=== PATIENT | female | born 1950 | race Caucasian/White ===

== ENCOUNTER → 2018-01-02 | Outpatient (CLI) | payer MEDICARE ==
[~2018-01-02] MED LIST: BENA20TA72; BENICAR; CALCIUM; DILT120C; DILTIAZEM; FISH OIL; HCTZ12.5T; HYDR-757 PO; LISI1TAB8 PO; VITAMIN D
== END ==
LOC: CARD 10:04
PROVIDERS: ATTEND Internal Medicine Cardiovascular Disease
DX: I65.23 Occlusion and stenosis of bilateral carotid arteries (principal); R07.9 Chest pain, unspecified; R06.00 Dyspnea, unspecified; I10 Essential (primary) hypertension; E78.2 Mixed hyperlipidemia
CPT/HCPCS: 93306

== ENCOUNTER → 2018-01-07 | Outpatient (CLI) | payer MEDICARE ==
--- NOTE | 2018-01-07 12:27 | Diagnostic Imaging Report ---
INDICATION: Routine screening. COMPARISON: 11/17/2014 and 01/09/2012. TECHNIQUE: 2D and 3D bilateral screening mammography was performed with CAD. FINDINGS: Both breasts are heterogeneously dense, limiting the sensitivity of mammography. The parenchymal pattern is stable. No mass or malignant-appearing microcalcifications are seen. The axillae are unremarkable. IMPRESSION: No mammographic features suspicious for malignancy are identified. ACR BI-RADS Category 1: Negative. Result letter will be mailed to the patient. Note: At least 10% of breast cancer is not imaged by mammography. Dictated by: Dictated on workstation # [id number]
== END ==
LOC: RAD 08:36
PROVIDERS: ATTEND Internal Medicine
DX: Z12.31 Encounter for screening mammogram for malignant neoplasm of breast (principal)
CPT/HCPCS: 77067

== ENCOUNTER 2018-09-22 08:52 | Observation (INO) | payer MEDICARE ==
[2018-09-22] VITALS (14 sets, daily range): BP systolic 134–183; BP diastolic 72–91
[~2018-09-22] VITALS: Ht 162.6 cm; Wt 76.8 kg
[~2018-09-22 08:52] MED LIST changes: +HYDR-4226 PO; -HYDR-757 PO
[2018-09-22 09:40] LABS: BASOPHILS # (AUTO) 0.1 10^3/uL (0.0-0.1); BASOPHILS % (AUTO) 1 % (0-10); EOSINOPHILS # (AUTO) 0.2 10^3/uL (0.0-0.3); EOSINOPHILS % (AUTO) 3 % (0-10); HEMATOCRIT 38 % (35-52); LYMPHOCYTES # (AUTO) 1.6 X 10^3 (1.0-4.0); LYMPHOCYTES % (AUTO) 31 % (12-44); MEAN CORPUSCULAR HEMOGLOBIN 32 PG (25-34); MEAN CORPUSCULAR HGB CONC 34 G/DL (32-36); MEAN CORPUSCULAR VOLUME 93 FL (80-99); MEAN PLATELET VOLUME 10.6 FL (7.4-10.4); MONOCYTES # (AUTO) 0.5 X 10^3 (0.0-1.0); MONOCYTES % (AUTO) 9 % (0-12); NEUTROPHILS # (AUTO) 2.9 X 10^3 (1.8-7.8); NEUTROPHILS % (AUTO) 56 % (42-75); PLATELET COUNT 246 10^3/uL (130-400); WHITE BLOOD COUNT 5.1 10^3/uL (4.3-11.0)
[2018-09-22] MEDS: NS IV 1000 ML 1,000 ML IV SCH ×3 (09:40→15:19)
--- NOTE | 2018-09-22 09:42 | ED Chest Pain ---
General Chief Complaint: Chest Pain Stated Complaint: SHOULDER PAIN, PRESSURE IN CHEST Nursing Triage Note: PT AMB TO RM 7 WITH COMPLAINT OF SHOULDER BLADE PRESSURE THAT RADIATES TO CHEST , BILATERAL SHOULDERS AND BILATERAL ARMS. Nursing Sepsis Screen: No Definite Risk Source: patient, family Exam Limitations: no limitations History of Present Illness Date Seen by Provider: Sep 22, 2018 Time Seen by Provider: 09:29 Initial Comments This 68-year-old white female presents with two-week history of intermittent severe right shoulder pain now with also episodes of chest pressure. Patient relates that the right shoulder pain lasts for an hour and is rated as 8/10. The patient's chest pressure episodes last 30 minutes and is rated as 5/10. Patient denies any other symptoms with these episodes. The patient has a history of hypertension and extrasystoles for which she sees Dr. Gannon. She uses lisinopril with hydrochlorothiazide for her blood pressure and Cardizem 120 mg. Allergies and Home Medications Allergies Coded Allergies: No Known Allergies (Unverified Allergy, Mild, 05/30/09) Home Medications Hydrocodone/Acetaminophen 1 Each Tablet, 1 EACH PO Q6H PRN for PAIN Prescribed by: VANESSA PAZ on 10/27/151942 Lisinopril/Hydrochlorothiazide 1 Each Tablet, 1 EACH PO DAILY, (Reported) Patient Home Medication List Home Medication List Reviewed: Yes Review of Systems Review of Systems Constitutional: No chills EENTM: No Double Vision Respiratory: Denies Cough Cardiovascular: See HPI, Chest Pain Gastrointestinal: Denies Abdominal Pain, Denies Diarrhea, Denies Nausea, Denies Vomiting Genitourinary: Denies Burning, Denies Frequency Musculoskeletal: No back pain Skin: No rash Psychiatric/Neurological: Denies Anxiety, Denies Depressed Endocrine: Denies No Symptoms Reported Hematologic/Lymphatic: Denies No Symptoms Reported Past Cvwmoll-Hgrvgh-Ebouuw Hx Past Med/Social Hx: Reviewed Nursing Past Med/Soc Hx Patient Social History Alcohol Use: Denies Use Recreational Drug Use: No Smoking Status: Never a Smoker Recent Foreign Travel: No Contact w/Someone Who Travel: No Recent Infectious Disease Expo: No Recent Hopitalizations: No Immunizations Up To Date Tetanus Booster (TDap): Unknown Past Medical History Surgeries: Yes (EYELIDS DONE) Tonsillectomy, Tubal Ligation Respiratory: No Cardiac: Yes Hypertension, Irregular Heartbeat Neurological: No Reproductive Disorders: No Genitourinary: No Gastrointestinal: No Musculoskeletal: No Endocrine: No Cancer: No Psychosocial: No Blood Disorders: No Physical Exam Vital Signs Vital Signs - First Documented 09/22/18 08:54 Pulse 73 Resp 11 B/P (MAP) 154/81 (105) Pulse Ox 94 O2 Delivery Room Air Capillary Refill : Less Than 3 Seconds Height, Weight, BMI Height: 5'4.00" Weight: 172lbs. 0.2oz. 78.432891gq; BMI Method:Stated General Appearance: No Apparent Distress, WD/WN HEENT: Normal ENT Inspection Neck: Normal Inspection, Non Tender Respiratory: Chest Non Tender, Lungs Clear, Normal Breath Sounds Cardiovascular: Regular Rate, Rhythm, No Murmur Gastrointestinal: Normal Bowel Sounds, Non Tender, Soft Extremity: Normal Capillary Refill, Normal Inspection, Normal Range of Motion, Non Tender Neurologic/Psychiatric: Alert, Oriented x3, No Motor/Sensory Deficits, Normal Mood/Affect Skin: Normal Color, Warm/Dry Progress/Results/Core Measures Results/Orders Lab Results Laboratory Tests Test 09/22/18 09:05 Range/Units White Blood Count 5.1 4.3-11.0 10^3/uL Red Blood Count 4.10 L 4.35-5.85 10^6/uL Hemoglobin 13.0 11.5-16.0 G/DL Hematocrit 38 35-52 % Mean Corpuscular Volume 93 80-99 FL Mean Corpuscular Hemoglobin 32 25-34 PG Mean Corpuscular Hemoglobin Concent 34 32-36 G/DL Red Cell Distribution Width 13.0 10.0-14.5 % Platelet Count 246 130-400 10^3/uL Mean Platelet Volume 10.6 H 7.4-10.4 FL Neutrophils (%) (Auto) 56 42-75 % Lymphocytes (%) (Auto) 31 12-44 % Monocytes (%) (Auto) 9 0-12 % Eosinophils (%) (Auto) 3 0-10 % Basophils (%) (Auto) 1 0-10 % Neutrophils # (Auto) 2.9 1.8-7.8 X 10^3 Lymphocytes # (Auto) 1.6 1.0-4.0 X 10^3 Monocytes # (Auto) 0.5 0.0-1.0 X 10^3 Eosinophils # (Auto) 0.2 0.0-0.3 10^3/uL Basophils # (Auto) 0.1 0.0-0.1 10^3/uL D-Dimer 0.51 H 0.00-0.49 UG/ML Sodium Level 138 135-145 MMOL/L Potassium Level 4.2 3.6-5.0 MMOL/L Chloride Level 103 98-107 MMOL/L Carbon Dioxide Level 24 21-32 MMOL/L Anion Gap 11 5-14 MMOL/L Blood Urea Nitrogen 9 7-18 MG/DL Creatinine 0.85 0.60-1.30 MG/DL Estimat Glomerular Filtration Rate > 60 BUN/Creatinine Ratio 11 Glucose Level 111 H 70-105 MG/DL Calcium Level 9.5 8.5-10.1 MG/DL Corrected Calcium 9.3 8.5-10.1 MG/DL Total Bilirubin 0.4 0.1-1.0 MG/DL Aspartate Amino Transf (AST/SGOT) 22 5-34 U/L Alanine Aminotransferase (ALT/SGPT) 13 0-55 U/L Alkaline Phosphatase 72 40-136 U/L Troponin I < 0.028 <0.028 NG/ML Total Protein 7.8 6.4-8.2 GM/DL Albumin 4.2 3.2-4.5 GM/DL My Orders Orders - SIENNA DENISE MD Ekg Tracing (09/22/18 09:25) Troponin I (09/22/18 09:25) Fibrin Degradation Products (09/22/18 09:25) Cbc With Automated Diff (09/22/18 09:25) Comprehensive Metabolic Panel (09/22/18 09:25) Chest 1 View, Ap/Pa Only (09/22/18 09:25) Shoulder, Right, 2 Views (09/22/18 09:25) Ns Iv 1000 Ml (Sodium Chloride 0.9%) (09/22/18 09:30) Fentanyl Injection (Sublimaze Injection (09/22/18 12:45) Vital Signs/I&O 09/22/18 08:54 Pulse 73 Resp 11 B/P (MAP) 154/81 (105) Pulse Ox 94 O2 Delivery Room Air Blood Pressure Mean: 105 Progress Progress Note : Time: 12:51 Progress Note Patient's EKG demonstrated normal sinus rhythm without acute cranial injury or dysrhythmia. The patient's laboratory evaluation was essentially within normal limits. Patient's radiograph of her right shoulder and chest were unremarkable. Patient was treated with 50 g of fentanyl IV for her pain. Patient was undertaken with Dr. Elliott who was kind enough to admit the patient to an observation bed for further evaluation and care. Departure Communication (Admissions) Time/Spoke to Admitting Phy: 12:52 Dr. Elliott Impression Primary Impression: Chest pain Qualified Codes: R07.9 - Chest pain, unspecified Disposition: ADMITTED INPATIENT Condition: Improved Admissions Decision to Admit Reason: Admit from ER (General) Decision to Admit/Date: Sep 22, 2018 Time/Decision to Admit Time: 12:53 Departure-Patient Inst. Referrals: ELIER MURGUIA DO (PCP/Family) Primary Care Physician SIENNA DENISE MD Sep 22, 2018 09:42
[2018-09-22 09:54] LABS: ALANINE AMINOTRANSFERASE 13 U/L (0-55); ALBUMIN 4.2 GM/DL (3.2-4.5); ALKALINE PHOSPHATASE 72 U/L (40-136); BILIRUBIN,TOTAL 0.4 MG/DL (0.1-1.0); BUN/CREATININE RATIO 11; CALCIUM 9.5 MG/DL (8.5-10.1); CARBON DIOXIDE 24 MMOL/L (21-32); CHLORIDE 103 MMOL/L (98-107); CREATININE SERUM 0.85 MG/DL (0.60-1.30); GFR ESTIMATED > 60; GLUCOSE 111 MG/DL (70-105); POTASSIUM 4.2 MMOL/L (3.6-5.0); SODIUM 138 MMOL/L (135-145); TOTAL PROTEIN 7.8 GM/DL (6.4-8.2)
--- NOTE | 2018-09-22 10:05 | Diagnostic Imaging Report ---
INDICATION: Chest pain. EXAMINATION: Portable chest at 9:47 AM. FINDINGS: The heart size and pulmonary vascularity are normal. The lungs are clear. There are no effusions or pneumothoraces. IMPRESSION: Negative chest. Dictated by: Dictated on workstation # [id number]
--- NOTE | 2018-09-22 10:06 | Diagnostic Imaging Report ---
INDICATION: Right shoulder pain. FINDINGS: Two views of the right shoulder show no fracture, dislocation, or other acute abnormalities. IMPRESSION: Negative right shoulder. Dictated by: Dictated on workstation # [id number]
[2018-09-22] MEDS ORDERED: fentaNYL INJECTION 100 MCG/2 ML AMP IVP ONE (12:45)
--- NOTE | 2018-09-22 14:25 | NUR ---
LINDA STANFORD admitted to room 407-1, with an admitting diagnosis of CHEST PAIN, on 09/22/18 from ER via WHEELCHAIR, accompanied by STAFF AND ADULT CHILD.LINDA STANFORD introduced to surroundings, call light, bed controls, phone, TV, temperature control, lights, meal times, smoking policy, visitor policy, side rail policy, bathrooms and showers. Patient Rights given to patient in the handbook. LINDA STANFORD verbalizes understanding that [facility] is not responsible for the loss or damage to any personal effects or valuables that are kept in the patients posession during their hospitalization. The following Patient Care Plans were discussed with the CHEST PAIN AND DISCHARGE PLANNING. LINDA STANFORD verbalizes understanding of Interdisciplinary Patient Education. Patient and/or family were informed about the Rapid Response Team and its purpose.
[2018-09-22] MEDS ORDERED: NITROGLYCERIN 0.4 MG SL TABS BTL 25'S SL PRN (15:15)
[2018-09-22] MEDS ORDERED: CATHETER FLUSH 10 ML SYR IV PRN (15:15)
[2018-09-22] MEDS: fentaNYL INJECTION 100 MCG/2 ML AMP IV PRN ×2 (15:19→20:53)
[2018-09-22] MEDS ORDERED: CHOL10007 PO (16:30)
[2018-09-22] MEDS ORDERED: DILT120C53 PO (16:30)
[2018-09-22] MEDS ORDERED: ALPR0.254 PO (16:30)
[2018-09-22] MEDS ORDERED: ASPI-983 PO (16:30)
--- NOTE | 2018-09-22 16:30 | NUR ---
SPOKE WITH THE PATIENT ABOUT HER MEDICATIONS. SHE LISTED TO ME WHAT SHE IS TAKING AND I VERIFIED IT WITH THE EXT MED HX. SHE TAKES ASPIRIN 81MG DAILY AND VITAMIN D DAILY OTC WELL.
[2018-09-23 03:51] VITALS: BP 131/65
[2018-09-23 06:10] LABS: BASOPHILS # (AUTO) 0.1 10^3/uL (0.0-0.1); BASOPHILS % (AUTO) 1 % (0-10); EOSINOPHILS # (AUTO) 0.2 10^3/uL (0.0-0.3); EOSINOPHILS % (AUTO) 4 % (0-10); HEMATOCRIT 33 % (35-52); HEMOGLOBIN 11.2 G/DL (11.5-16.0); LYMPHOCYTES # (AUTO) 1.8 X 10^3 (1.0-4.0); LYMPHOCYTES % (AUTO) 35 % (12-44); MEAN CORPUSCULAR HEMOGLOBIN 32 PG (25-34); MEAN CORPUSCULAR HGB CONC 34 G/DL (32-36); MEAN CORPUSCULAR VOLUME 94 FL (80-99); MONOCYTES # (AUTO) 0.4 X 10^3 (0.0-1.0); MONOCYTES % (AUTO) 8 % (0-12); NEUTROPHILS # (AUTO) 2.6 X 10^3 (1.8-7.8); NEUTROPHILS % (AUTO) 52 % (42-75); PLATELET COUNT 219 10^3/uL (130-400)
[2018-09-23 06:31] LABS: ALANINE AMINOTRANSFERASE 12 U/L (0-55); ALBUMIN 3.5 GM/DL (3.2-4.5); ALKALINE PHOSPHATASE 55 U/L (40-136); BILIRUBIN,TOTAL 0.5 MG/DL (0.1-1.0); BUN/CREATININE RATIO 10; CARBON DIOXIDE 27 MMOL/L (21-32); CHLORIDE 110 MMOL/L (98-107); CREATININE SERUM 0.69 MG/DL (0.60-1.30); GFR ESTIMATED > 60; GLUCOSE 102 MG/DL (70-105); POTASSIUM 3.3 MMOL/L (3.6-5.0); SODIUM 144 MMOL/L (135-145); TOTAL PROTEIN 6.1 GM/DL (6.4-8.2)
[2018-09-23] MEDS: fentaNYL INJECTION 100 MCG/2 ML AMP IV PRN ×2 (06:46→10:09)
[2018-09-23 07:33] VITALS: BP 162/76
[2018-09-23] MEDS ORDERED: ASPIRIN 325 MG (5 GR) TABLET PO SCH (09:00)
[2018-09-23] MEDS ORDERED: PANTOPRAZOLE 20 MG TABLET (PROTONIX) PO NR (10:15)
[2018-09-23] MEDS ORDERED: CALCIUM CARBONATE 500 MG (TUMS) TAB.CHEW PO PRN (10:15)
--- NOTE | 2018-09-23 11:04 | History & Physical-Hospitalist ---
History of Present Illness HPI/Chief Complaint The patient is a 68-year-old white female whom I have known for many years. She presented to the emergency room yesterday with intermittent chest pressure. This did not relate to exercise or other activities. She had not had this sensation before. There is no past history of myocardial infarction. She is hypertensive and takes lisinopril. Source: patient Date Seen 09/23/18 Time Seen by a Provider: 11:01 Attending Physician Nawaf Stein MD PCP Sheyla Mcneill DO Referring Physician Date of Admission Sep 22, 2018 at 12:40 Home Medications & Allergies Home Medications Reviewed patient Home Medication Reconciliation performed by pharmacy medication reconciliations veterinary assistant technician and/or nursing. Patients Allergies have been reviewed. Allergies Allergies Coded Allergies NKANo Known Allergies (Unverified Allergy, Mild, 05/30/09) Past Ekogfgk-Btlocg-Jesysl Hx Past Med/Social Hx: Reviewed Nursing Past Med/Soc Hx Patient Social History Alcohol Use: Denies Use Recreational Drug Use: No Smoking Status: Never a Smoker Recent Foreign Travel: No Contact w/other who traveled: Yes (Atul) Recent Hopitalizations: No Recent Infectious Disease Expo: No Immunizations Up To Date Tetanus Booster (TDap): Unknown Past Medical History Surgeries: Tonsillectomy, Tubal Ligation Cardiac: Hypertension, Irregular Heartbeat Reproductive: No History of Blood Disorders: No Review of Systems Constitutional: see HPI EENTM: no symptoms reported Respiratory: no symptoms reported Cardiovascular: see HPI, chest pain Gastrointestinal: no symptoms reported Genitourinary: no symptoms reported Musculoskeletal: no symptoms reported Skin: no symptoms reported Psychiatric/Neurological: No Symptoms Reported Physical Exam Physical Exam Vital Signs Vital Signs - First Documented 09/22/18 09/22/18 08:54 14:44 Temp 97.6 Pulse 73 Resp 11 B/P (MAP) 154/81 (105) Pulse Ox 94 O2 Delivery Room Air Capillary Refill : Less Than 3 Seconds Height, Weight, BMI Height: 5'4.00" Weight: 169lbs. 4.0oz. 76.183586se; 29.5 BMI Method:Stated General Appearance: No Apparent Distress, WD/WN Eyes: Bilateral Eye Normal Inspection HEENT: Normal ENT Inspection Neck: Normal Inspection Respiratory: Chest Non Tender, Lungs Clear, Normal Breath Sounds, No Accessory Muscle Use, No Respiratory Distress Cardiovascular: Regular Rate, Rhythm, No Murmur Gastrointestinal: Normal Bowel Sounds, No Organomegaly, No Pulsatile Mass, Non Tender, Soft Back: Normal Inspection Extremity: Normal Capillary Refill, Normal Inspection, Normal Range of Motion, Non Tender, No Calf Tenderness, No Pedal Edema Neurologic/Psychiatric: Alert, Oriented x3, No Motor/Sensory Deficits, Normal Mood/Affect Skin: Normal Color, Warm/Dry Lymphatic: No Adenopathy Comments Multiple troponins were negative. EKG showed loss of R wave in V1 and V2 which is not new. It is noted that multiple blood pressure measures show a relative systolic hypertension. Results Results/Procedures Labs Laboratory Tests 09/22/18 09:05 09/23/18 05:40 Patient resulted labs reviewed. Assessment/Plan Admission Diagnosis Atypical chest pain. 2.hypertension. Admission Status: Observation Clinical Quality Measures AMI/AHF: ASA po Prior to arrival: Yes (81MG EVERYDAY) DVT/VTE Risk/Contraindication: Risk Factor Score Per Nursin RFS Level Per Nursing on Admit: 2=Moderate NAWAF STEIN MD Sep 23, 2018 11:04
[2018-09-23] MEDS ORDERED: ALPRAZolam 0.25 MG (XANAX) TAB PO PRN (12:00)
[2018-09-23] MEDS ORDERED: PANT40SU PO (12:02)
--- NOTE | 2018-09-23 12:08 | Short Stay Summary ---
History of Present Illness History of Present Illness Reason for visit/HPI 68 years old lady with history of hypertension and hyperlipidemia, has been having right shoulder pain for the past week, described it as pain with movement. Started to have chest pain described as achiness in the retrosternal area, not related to exertion, no palpitation, no syncope or near syncopal episode, has been taking ibuprofen for the past week Date of Admission Sep 22, 2018 at 12:40 Date of Discharge September 23, 2018 Time Seen by Provider: 08:00 Attending Physician Nawaf Elliott MD Admitting Physician Sheyla Mcneill DO Consult Allergies and Home Medications Allergies Coded Allergies: NKANo Known Allergies (Unverified Allergy, Mild, 05/30/09) Home Medications Alprazolam 0.25 Mg Tablet, 0.25 MG PO QID PRN for ANXIETY, (Reported) Aspirin 81 Mg Tablet.dr, 81 MG PO DAILY, (Reported) Cholecalciferol (Vitamin D3) 1,000 Unit Capsule, 1,000 UNIT PO DAILY, (Reported) Diltiazem HCl 120 Mg Cap.er.24h, 120 MG PO DAILY, (Reported) Lisinopril/Hydrochlorothiazide 1 Each Tablet, 1 TAB PO DAILY, (Reported) Pantoprazole Sodium 40 Mg Granpkt.dr, 40 MG PO DAILY Prescribed by: TOD ROGERS on 09/23/18 1202 Patient Home Medication List Home Medication List Reviewed: Yes Past Pplowjz-Grijzy-Ssgecx Hx Patient Social History Alcohol Use: Denies Use Recreational Drug Use: No Smoking Status: Never a Smoker Recent Foreign Travel: No Contact w/other who traveled: Yes (Atul) Recent Hopitalizations: No Recent Infectious Disease Expo: No Immunizations Up To Date Tetanus Booster (TDap): Unknown Surgeries Yes (EYELIDS DONE) Tonsillectomy, Tubal Ligation Respiratory No Cardiovascular Yes Hypertension, Irregular Heartbeat Neurological No Reproductive System Hx Reproductive Disorders: No Genitourinary No Gastrointestinal No Musculoskeletal No Endocrine History of Endocrine Disorders: No Cancer No Psychosocial History of Psychiatric Problem: No Blood Transfusions History of Blood Disorders: No Family Medical History Other Significan Family Hx: noncontributory Review of Systems Constitutional: no symptoms reported, see HPI EENTM: see HPI, no symptoms reported Respiratory: see HPI; No cough, No dyspnea on exertion, No hemoptysis, No orthopnea, No phlegm, No short of breath, No stridor, No wheezing, No other Cardiovascular: see HPI, chest pain; No edema, No Hx of Intervention, No palpitations, No syncope, No vascular heart diseas, No other Gastrointestinal: no symptoms reported, see HPI Genitourinary: no symptoms reported, see HPI Musculoskeletal: see HPI, joint pain (right shoulder pain) Skin: no symptoms reported, see HPI Psychiatric/Neurological: No Symptoms Reported, See HPI Physical Exam Vital Signs Vital Signs - First Documented 09/22/18 09/22/18 08:54 14:44 Temp 97.6 Pulse 73 Resp 11 B/P (MAP) 154/81 (105) Pulse Ox 94 O2 Delivery Room Air Capillary Refill : Less Than 3 Seconds Height, Weight, BMI Height: 5'4.00" Weight: 169lbs. 4.0oz. 76.287768di; 29.5 BMI Method:Stated General Appearance: No Apparent Distress, WD/WN Eyes: Bilateral Eye Normal Inspection, Bilateral Eye PERRL, Bilateral Eye EOMI HEENT: PERRL/EOMI, TMs Normal, Normal ENT Inspection, Pharynx Normal Neck: Full Range of Motion, Normal Inspection, Non Tender, Supple, Carotid Bruit Respiratory: Chest Non Tender, Lungs Clear, Normal Breath Sounds, No Accessory Muscle Use, No Respiratory Distress Cardiovascular: Regular Rate, Rhythm, No Edema, No Gallop, No JVD, No Murmur, Normal Peripheral Pulses Gastrointestinal: Normal Bowel Sounds, No Organomegaly, No Pulsatile Mass, Non Tender, Soft Back: Normal Inspection, No CVA Tenderness, No Vertebral Tenderness Extremity: Normal Capillary Refill, Normal Inspection, Normal Range of Motion, Non Tender, No Calf Tenderness, No Pedal Edema Neurologic/Psychiatric: Alert, Oriented x3, No Motor/Sensory Deficits, Normal Mood/Affect Skin: Normal Color, Warm/Dry Lymphatic: No Adenopathy Clinical Quality Measures AMI/AHF: ASA po Prior to arrival: Yes (81MG EVERYDAY) DVT/VTE Risk/Contraindication: Risk Factor Score Per Nursin RFS Level Per Nursing on Admit: 2=Moderate Short Stay Diagnosis Discharge Diagnosis-Short Stay Admission Diagnosis: chest pain Shoulder pain Hypertension Hyperlipidemia Final Discharge Diagnosis: chest pain Shoulder pain Hypertension Hyperlipidemia Conclusion Labs Laboratory Tests 09/22/18 15:09: Troponin I < 0.028 09/22/18 21:01: Troponin I < 0.028 09/23/18 05:40: White Blood Count 5.0, Red Blood Count 3.54L, Hemoglobin 11.2L, Hematocrit 33L, Mean Corpuscular Volume 94, Mean Corpuscular Hemoglobin 32, Mean Corpuscular Hemoglobin Concent 34, Red Cell Distribution Width 13.0, Platelet Count 219, Mean Platelet Volume 10.0, Neutrophils (%) (Auto) 52, Lymphocytes (%) (Auto) 35 , Monocytes (%) (Auto) 8, Eosinophils (%) (Auto) 4, Basophils (%) (Auto) 1, Neutrophils # (Auto) 2.6, Lymphocytes # (Auto) 1.8, Monocytes # (Auto) 0.4, Eosinophils # (Auto) 0.2, Basophils # (Auto) 0.1, Sodium Level 144, Potassium Level 3.3L, Chloride Level 110H, Carbon Dioxide Level 27, Anion Gap 7, Blood Urea Nitrogen 7, Creatinine 0.69, Estimat Glomerular Filtration Rate > 60, BUN/ Creatinine Ratio 10, Glucose Level 102, Calcium Level 9.0, Corrected Calcium 9.4 , Total Bilirubin 0.5, Aspartate Amino Transf (AST/SGOT) 13, Alanine Aminotransferase (ALT/SGPT) 12, Alkaline Phosphatase 55, Total Protein 6.1L, Albumin 3.5 Conclusion/Plan Chest pain nonspecific etiology, EKG and cardiac enzymes were negative, not reproducible, could be GI secondary to ibuprofen. I started her on Protonix, planning to evaluate stress test as an outpatient next Right shoulder pain, painful movement of the right shoulder, I will refer her for evaluation with orthopedic surgeon, patient requested to see Dr. Rogers Hypertension, Restart home medication monitor Hyperlipidemia, continue to monitor lipids History of dyspnea, reporting improvement. Continue to monitor History of palpitation with premature ventricular contractions, reporting improvement. Mild bilateral carotid stenosis, nonobstructive disease. Last ultrasound was done September 2016, continue to monitor History of prediabetes, followed and managed by primary care physician. TOD ROGERS MD Sep 23, 2018 12:08
[2018-09-23 12:09] VITALS: BP 168/78
[2018-09-23] MEDS: NS IV 1000 ML 1,000 ML IV SCH (12:47)
[2018-09-24] MEDS ORDERED: lisINopril 20 MG (PRINIVIL) TABLET PO SCH (09:00)
[2018-09-24] MEDS ORDERED: DILTIAZEM 120 MG (CARDIZEM CD) CAP PO SCH (09:00)
[2018-09-24] MEDS ORDERED: HYDROCHLOROTHIAZIDE 12.5 MG (HCTZ) CAP PO SCH (09:00)
[2018-09-24] MEDS ORDERED: ASPIRIN E.C. 81 MG (ECOTRIN) TAB PO SCH (09:00)
== END 2018-09-23 12:02 | disposition home or self-care (01) ==
LOC: EDUNIT# 08:52 → ER 08:53 → 4TH 12:40 → UNDOADMOB 12:40 → 4TH 14:25 → UNDODISOB 09-23 15:55
PROVIDERS: ADMIT Internal Medicine; ATTEND Internal Medicine
DX: R07.9 Chest pain, unspecified (principal); M25.511 Pain in right shoulder; I10 Essential (primary) hypertension; E78.5 Hyperlipidemia, unspecified; R73.03 Prediabetes; I49.3 Ventricular premature depolarization; I65.23 Occlusion and stenosis of bilateral carotid arteries; R06.00 Dyspnea, unspecified; Z79.82 Long term (current) use of aspirin; Z79.899 Other long term (current) drug therapy
CPT/HCPCS: 36415; 71045; 73030; 80053; 84484; 85025; 85379; 90471; 93005; G0378

== ENCOUNTER → 2018-09-24 | Outpatient (CLI) | payer MEDICARE ==
[~2018-09-24] MED LIST changes: +ALPR0.254 PO; +ASPI-983 PO; +CATHETER FLUSH 10 ML SYR IV PRN; +CHOL10007 PO; +DILT120C53 PO; +PANT40SU PO
--- NOTE | 2018-09-25 02:52 | STRESS TEST ---
DATE OF SERVICE: 09/24/2018 AN EXERCISE MYOVIEW STRESS TEST REPORT REFERRING PHYSICIAN: Sheyla Mcneill DO Baseline heart rate is 62. Baseline blood pressure 170/80. Baseline EKG is sinus rhythm with no ischemic changes. In summary, the patient was injected with 10.54 mCi of technetium-99 Myoview and the resting images were obtained. Then, the patient started exercising with a baseline heart rate, blood pressure and EKG mentioned above. The patient was able to exercise for 4 minutes and 15 seconds on standard [facility] protocol. With peak exercise level, EKG was showing minimal nondiagnostic changes. Blood pressure was 202/96. During recovery, heart rate and blood pressure returned to baseline. EKG returned to baseline. The resting and stress images were reviewed and compared in the short axis, horizontal long axis, and vertical long axis views. Review of the images showed breast attenuation with typical female pattern with no significant ischemia or infarction. SSS is 3, SDS 3, TID value 1.03. On the gated images, the left ventricle appeared to be normal size with normal contractility. Calculated ejection fraction 60%. CONCLUSION: 1. Fair exercise tolerance, a total of 4 minutes and 15 seconds on standard [facility] protocol, achieving 96% of maximum expected heart rate, total of 6.0 mets. 2. Baseline hypertension with hypertensive response to exercise with peak blood pressure during test was 224/87. 3. Minimal nondiagnostic EKG changes with exercise returned to baseline during recovery. 4. Typical female pattern with no ischemia or infarction on SPECT images. 5. Normal left ventricular size with normal contractility. Calculated ejection fraction 60%. Job ID: [id number] DocumentID: [id number] Dictated Date: 09/24/2018 21:05:05 Clergy Member Date: 09/25/2018 02:51:33 Dictated By: TOD ROGERS MD
== END ==
LOC: CARD 11:22
PROVIDERS: ATTEND Internal Medicine Cardiovascular Disease
DX: R07.9 Chest pain, unspecified (principal); I10 Essential (primary) hypertension; E78.2 Mixed hyperlipidemia
CPT/HCPCS: 78452; 93017

== ENCOUNTER → 2018-09-30 | Outpatient (CLI) | payer MEDICARE ==
[~2018-09-30] MED LIST changes: -CATHETER FLUSH 10 ML SYR IV PRN
--- NOTE | 2018-09-30 16:27 | Diagnostic Imaging Report ---
PROCEDURE: MR imaging cervical spine without contrast. TECHNIQUE: Multiplanar, multisequence MR imaging of the cervical spine was performed without contrast. INDICATION: Neck pain and stiffness particularly when turning the head to the right and numbness in the right fingers. FINDINGS: There is straightening of cervical lordosis without listhesis. The vertebral stature was normal. The marrow signal intensity was normal. Cervical spinal cord itself has a normal volume and normal morphology and normal signal intensity. Primary abnormality is at the C5-C6 level where there is disc desiccation, loss of disc stature and broad-based posterior right lateral disc bulge and right-sided uncovertebral joint spurring and hypertrophy. The osteophyte disc material indents the right ventral thecal sac with a moderate severity of central canal stenosis and severe right-sided neural foraminal stenosis. The left foramen was widely patent. The discs at C3-C4, C4-C5 and C6-C7 reveal slight circumferential annular bulge but no focal protrusion or resultant stenosis. The remaining discs are well-hydrated and normal. IMPRESSION: C5-C6 spondylosis and right-sided asymmetric osteophyte disc material with resultant canal and severe right foraminal stenosis. Unremarkable cord. Remaining levels showed only mild degenerative changes without additional stenosis. Dictated by: Dictated on workstation # [id number]
== END ==
LOC: RAD 13:25
PROVIDERS: ATTEND Nurse Practitioner Family
DX: M47.22 Other spondylosis with radiculopathy, cervical region (principal); M25.78 Osteophyte, vertebrae; M48.02 Spinal stenosis, cervical region; M50.10 Cervical disc disorder with radiculopathy, unspecified cervical region
CPT/HCPCS: 72141

== ENCOUNTER 2018-11-14 13:30 | Outpatient (RCR) | payer MEDICARE | END 2019-01-07 13:37 | disposition home or self-care (01) | PROVIDERS: ATTEND Nurse Practitioner Family | DX: M51.16 Intervertebral disc disorders with radiculopathy, lumbar region (principal) ==

== ENCOUNTER → 2021-09-26 | Outpatient (CLI) | payer MEDICARE ==
[~2021-09-26] MED LIST changes: +ALPR.25T PO; -ALPR0.254 PO; +ASPI-1238 PO; -ASPI-983 PO; +LISI1TAB46 PO; -LISI1TAB8 PO
--- NOTE | 2021-09-26 13:34 | Diagnostic Imaging Report ---
INDICATION: Routine screening. COMPARISON: 01/07/2018 and 11/17/2014. TECHNIQUE: 2D and 3D bilateral screening mammography was performed with CAD. FINDINGS: Both breasts are heterogeneously dense, limiting the sensitivity of mammography. The parenchymal pattern is stable. No mass or malignant-appearing microcalcifications are seen. The axillae are unremarkable. IMPRESSION: No mammographic features suspicious for malignancy are identified. ACR BI-RADS Category 1: Negative. Result letter will be mailed to the patient. Note: At least 10% of breast cancer is not imaged by mammography. Dictated by: Dictated on workstation # [id number]
== END ==
LOC: RAD 08:38
PROVIDERS: ATTEND Internal Medicine
DX: Z12.31 Encounter for screening mammogram for malignant neoplasm of breast (principal)
CPT/HCPCS: 77063; 77067

== ENCOUNTER → 2021-11-07 | Outpatient (CLI) | payer MEDICARE | LOC: CARD 09:30 | PROVIDERS: ATTEND Internal Medicine Cardiovascular Disease | DX: I35.1 Nonrheumatic aortic (valve) insufficiency (principal); I10 Essential (primary) hypertension; I25.10 Atherosclerotic heart disease of native coronary artery without angina pectoris | CPT/HCPCS: 93306 ==

== ENCOUNTER → 2021-11-27 | Outpatient (CLI) | payer MEDICARE ==
[~2021-11-27] VITALS: Ht 162 cm; Wt 78.0 kg
[~2021-11-27] MED LIST changes: +CATHETER FLUSH 10 ML SYR IVP PRN
[2021-11-27 09:23] VITALS: BP 140/59
--- NOTE | 2021-11-27 11:48 | Cardiology Stress Test Report ---
Stress Test Report Date of Procedure/Referring: Date of Procedure: Nov 27, 2021 PCP Felix Rogers DO Admitting Physician Admitting Physician: Attending Physician: Tod De La Cruz MD Indications: HTN Baseline Heart Rate: 61 Baseline Blood Pressure: Blood Pressure Systolic: 140 Blood Pressure Diastolic: 59 Vital Signs Date Time Temp Pulse Resp B/P (MAP) Pulse Ox O2 Delivery O2 Flow Rate FiO2 11/27/21 09:23 62 16 140/59 (86) 98 Room Air Baseline Vital Signs Vital Signs Date Time Temp Pulse Resp B/P (MAP) Pulse Ox O2 Delivery O2 Flow Rate FiO2 11/27/21 09:23 62 16 140/59 (86) 98 Room Air Baseline EKG: Baseline EKG: NSR Summary: After explaining the procedure and details to the patient, she signed the consent and was brought to the stress nuclear laboratory. Patient exercised on standard Juancarlos protocol, EKG, heart rate and blood pressure were monitored continuously, resting and stress doses of radio tracer were injected, imaging was acquired and reviewed in the short axis, horizontal long axis and vertical long axis views Patient was able to exercise for a total of 6 minutes on Juancarlos protocol, METs 7.3 Maximum heart rate 143 Maximum blood pressure 202/97 Stress EKG, Minimal nondiagnostic changes Recovery EKG, Return to baseline TID: 1.04 SSS: 2 SDS: 0 EF: 69 Conclusion: 1. Fair exercise tolerance for a total of 6 minutes on standard Juancarlos protocol, 7.3 METS achieving 97% of maximum expected heart rate 2. Frequent PVCs noted early in exercise progressed to ventricular bigeminy early and exercise and early in recovery. No ischemic EKG changes noted 3. Severe hypertensive response to exercise with peak blood pressure of 202/97 return to baseline during recovery 4. No significant ischemia or infarction on SPECT images 5. Normal left ventricular size, ejection fraction 69% TOD DE LA CRUZ MD Nov 27, 2021 11:47
== END ==
LOC: CARD 08:15
PROVIDERS: ATTEND Internal Medicine Cardiovascular Disease
DX: I10 Essential (primary) hypertension (principal); I25.10 Atherosclerotic heart disease of native coronary artery without angina pectoris
CPT/HCPCS: 78452; 93017; A9502

== ENCOUNTER 2021-12-09 14:32 | Emergency (ER) | payer MEDICARE ==
[~2021-12-09] VITALS: Ht 162 cm; Wt 78.0 kg
[~2021-12-09 14:32] MED LIST changes: -CATHETER FLUSH 10 ML SYR IVP PRN
[2021-12-09] MEDS ORDERED: TETRACAINE 0.5% OPHTH SOLN 4 ML BTL (SINGLE DOSE ONLY) OU ONE (15:45)
[2021-12-09] MEDS ORDERED: ERYT1OIN6 OP (16:27)
--- NOTE | 2021-12-09 16:28 | ED EENT ---
History of Present Illness General Chief Complaint: Eye Problems Stated Complaint: R EYE SWOLLEN Nursing Triage Note: Pt reports eye pain and swelling to right side with onset this morning. Reports she thought something may have blown in it yesterday. Pt reports she flushed it with water today but it hasn't helped. Source: patient Exam Limitations: no limitations (ERIN GAMBOA) History of Present Illness Date Seen by Provider: Dec 09, 2021 Time Seen by Provider: 16:24 Initial Comments Pt reports eye pain and swelling to right side with onset this morning. Reports she thought something may have blown in it yesterday. Pt reports she flushed it with water today but it hasn't helped. Timing/Duration: abrupt Location: eye (R) (ERIN GAMBOA) Allergies and Home Medications Allergies Coded Allergies: NKANo Known Allergies (Unverified Allergy, Mild, 05/30/09) Patient Home Medication List Home Medication List Reviewed: Yes (ERIN GAMBOA) ALPRAZolam (Xanax Tablet) 0.25 Mg Tablet, 0.25 MG PO QID PRN for ANXIETY, (Reported) Entered as Reported by: JORDAN RUSSO on 09/22/18 1630 Aspirin (Aspirin EC) 81 Mg Tablet.dr, 81 MG PO DAILY, (Reported) Entered as Reported by: JORDAN RUSSO on 09/22/18 1630 Cholecalciferol (Vitamin D3) (Vitamin D3) 1,000 Unit Capsule, 1,000 UNIT PO DAILY, (Reported) Entered as Reported by: JORDAN RUSSO on 09/22/18 1630 Diltiazem HCl (Cartia Xt) 120 Mg Cap.er.24h, 120 MG PO DAILY, (Reported) Entered as Reported by: JORDAN RUSSO on 09/22/18 1630 Erythromycin Base (Erythromycin Opthalmic Ointment) 5 Mg/Gram (0.5 %) Oint...g., 0 OP Q4H Prescribed by: Pavel Gamboa on 12/09/21 1627 Lisinopril/Hydrochlorothiazide (Lisinopril-Hctz 20-12.5 mg Tab) 1 Each Tablet, 1 TAB PO DAILY, (Reported) Entered as Reported by: DIAN GILL on 10/27/15 1855 Pantoprazole Sodium (Protonix) 40 Mg , 40 MG PO DAILY Prescribed by: TOD ROGERS on 09/23/18 1202 Review of Systems Review of Systems Constitutional: no symptoms reported Eyes: Pain, Photophobia Ears: No Symptoms Reported Nose: no symptoms reported Mouth: no symptoms reported Throat: no symptoms reported Cardiovascular: no symptoms reported (ERIN GAMBOA) Past Llkodvl-Chlrmz-Nysvzw Hx Patient Social History Tobacco Use?: No Substance use?: No Alcohol Use?: No (ERIN GAMBOA) Immunizations Up To Date Tetanus Booster (TDap): Unknown (ERIN GAMBOA) Past Medical History Surgeries: Yes (EYELIDS DONE) Tonsillectomy, Tubal Ligation Respiratory: No Cardiac: Yes Hypertension, Irregular Heartbeat Neurological: No Reproductive Disorders: No Genitourinary: No Gastrointestinal: No Musculoskeletal: No Endocrine: No Cancer: No Psychosocial: No Blood Disorders: No (ERIN GAMBOA) Family Medical History noncontributory (ERIN GAMBOA) Physical Exam Vital Signs Vital Signs - First Documented 12/09/21 15:23 Temp 37.2 Pulse 80 Resp 16 B/P (MAP) 190/80 (116) Pulse Ox 97 O2 Delivery Room Air (CARMEN MCADAMS MD) Height, Weight, BMI Height: 5'4.00" Weight: 169lbs. 4.0oz. 76.090590mt; 29.00 BMI Method:Stated General Appearance: WD/WN, no apparent distress Eyes: right eye other (Corneal abrasion of the 9 o'clock position. 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 Skin: normal color (ERIN GAMBOA) Progress/Results/Core Measures Results/Orders Medications Given in ED Current Medications Medications Dose Ordered Sig/Cammy Route Start Time Stop Time Status Last Admin Dose Admin Tetracaine HCl 4 ml ONCE ONCE OU 12/09/21 15:45 12/09/21 15:46 DC 12/09/21 16:23 4 ML (CARMEN MCADAMS MD) Vital Signs/I&O 12/09/21 12/09/21 15:23 16:34 Temp 37.2 37.2 Pulse 80 80 Resp 16 16 B/P (MAP) 190/80 (116) 190/80 Pulse Ox 97 97 O2 Delivery Room Air Room Air (CARMEN MCADAMS MD) Blood Pressure Mean: 116 Departure Communication (Admissions) I everted the patient's upper eyelid and cannot identify any foreign bodies. She does have a small corneal abrasion but no perforation or corneal foreign body. We will treat the patient with erythromycin ointment and she agrees to follow-up as needed. (ERIN GAMBOA) Impression Primary Impression: Conjunctivitis Additional Impression: Corneal abrasion Disposition: HOME, SELF-CARE Condition: Stable Departure-Patient Inst. Decision time for Depature: 16:26 (ERIN GAMBOA) Referrals: NO,LOCAL PHYSICIAN (PCP/Family) Primary Care Physician Patient Instructions: Corneal Abrasion (DC) Add. Discharge Instructions: At this time we cannot visualize a foreign body. If your symptoms persist or worsen I would like you to return to the emergency room for reevaluation. All discharge instructions reviewed with patient and/or family. Voiced understanding. Scripts Erythromycin Base (Erythromycin Opthalmic Ointment) 5 Mg/Gram (0.5 %) Oint...g. 0 OP Q4H for 7 Days, #20 GM 1/2 inch Prov: ERIN GAMBOA 12/09/21 ATTENDING PHYSICIAN NOTE: I was physically present as attending physician in the emergency department during the care of this patient, but I was not directly involved in the decision making or delivery of care for this patient. (CARMEN MCADAMS MD) ERIN GAMBOA Dec 09, 2021 16:28 CARMEN MCADAMS MD Dec 09, 2021 21:14
[2021-12-09 16:34] VITALS: BP 190/80
== END 2021-12-09 16:35 | disposition home or self-care (01) ==
LOC: EDUNIT# 14:32 → ER 14:33
DX: S05.01XA Injury of conjunctiva and corneal abrasion without foreign body, right eye, initial encounter (principal); H10.9 Unspecified conjunctivitis; X58.XXXA Exposure to other specified factors, initial encounter
CPT/HCPCS: 99281

== ENCOUNTER → 2022-07-02 | Outpatient (CLI) | payer MEDICARE ==
[~2022-07-02] MED LIST changes: +ERYT1OIN6 OP
== END ==
LOC: CARD 13:30
PROVIDERS: ATTEND Physician Assistant
DX: R00.2 Palpitations (principal)
CPT/HCPCS: 93225; 93226

== ENCOUNTER 2022-08-23 07:01 | Emergency (ER) | payer MEDICARE ==
[~2022-08-23] VITALS: Ht 162.5 cm; Wt 77.1 kg
--- NOTE | 2022-08-23 07:33 | ED Cough/URI ---
General Chief Complaint: Cough/Cold/Flu Symptoms Stated Complaint: COUGH | FEVER Source: patient Exam Limitations: no limitations History of Present Illness Date Seen by Provider: Aug 23, 2022 Time Seen by Provider: 07:25 Initial Comments Patient is a 72-year-old female with a history of hypertension who presents to the emergency room with a chief complaint of cough with occasional sputum, fever to 101 in the last couple of days congestion. Symptoms actually started about 6 days ago over the weekend Saturday and Saturday. She has been taking intermittent Robitussin, Tylenol and ibuprofen for her symptoms. She is not short of breath. She does not have an earache. She has no chest pain. She has no abdominal p ain, nausea, vomiting, diarrhea or urinary complaints. She is COVID vaccinated with her initial series, no boosters. She states her was diagnosed with COVID Saturday, 2 days ago. Appetite has been fair, she drinks lots of water. No lightheadedness, dizziness. Timing/Duration: week ((last Sat or Saturday)) Severity/Quality: moderate, sputum (occasional) Associated Symptoms: cough, fever/chills (101), nasal congestion, nasal drainage, sore throat (last ) Allergies and Home Medications Allergies Coded Allergies: ALAYNAANo Known Allergies (Unverified Allergy, Mild, 05/30/09) Patient Home Medication List Home Medication List Reviewed: Yes ALPRAZolam (Xanax Tablet) 0.25 Mg Tablet, 0.25 MG PO QID PRN for ANXIETY, (Reported) Entered as Reported by: JORDAN RUSSO on 09/22/18 163 Aspirin (Aspirin EC) 81 Mg Tablet.dr, 81 MG PO DAILY, (Reported) Entered as Reported by: JORDAN RUSSO on 09/22/18 163 Cholecalciferol (Vitamin D3) (Vitamin D3) 1,000 Unit Capsule, 1,000 UNIT PO DAILY, (Reported) Entered as Reported by: JORDAN RUSSO on 09/22/18 163 Diltiazem HCl (Cartia Xt) 120 Mg Cap.er.24h, 120 MG PO DAILY, (Reported) Entered as Reported by: JORDAN RUSSO on 09/22/18 163 Erythromycin Base (Erythromycin Opthalmic Ointment) 5 Mg/Gram (0.5 %) Oint...g., 0 OP Q4H Prescribed by: Pavel Gamboa on 12/09/21 1627 Lisinopril/Hydrochlorothiazide (Lisinopril-Hctz 20-12.5 mg Tab) 1 Each Tablet, 1 TAB PO DAILY, (Reported) Entered as Reported by: DIAN GILL on 10/27/15 1855 Pantoprazole Sodium (Protonix) 40 Mg , 40 MG PO DAILY Prescribed by: TOD ROGERS on 09/23/18 1202 Review of Systems Review of Systems Constitutional: see HPI, chills, diaphoresis, fever EENTM: nose congestion, throat pain Respiratory: cough, phlegm Cardiovascular: no symptoms reported Gastrointestinal: no symptoms reported Genitourinary: no symptoms reported Musculoskeletal: no symptoms reported Skin: no symptoms reported Psychiatric/Neurological: No Symptoms Reported All Other Systems Reviewed Negative Unless Noted: Yes Past Atvbivp-Xpgxuv-Uorpzq Hx Patient Social History Tobacco Use?: No Substance use?: No Alcohol Use?: Yes Alcohol Frequency: Once in a while Immunizations Up To Date Tetanus Booster (TDap): Unknown Past Medical History Surgeries: Yes (EYELIDS DONE) Tonsillectomy, Tubal Ligation Respiratory: No Cardiac: Yes Hypertension, Irregular Heartbeat Neurological: No Reproductive Disorders: No Genitourinary: No Gastrointestinal: No Musculoskeletal: No Endocrine: No Cancer: No Psychosocial: No Blood Disorders: No Family Medical History noncontributory Physical Exam Vital Signs - First Documented 08/23/22 07:06 Temp 36.7 Pulse 85 B/P (MAP) 153/73 (99) Pulse Ox 93 O2 Delivery Room Air Capillary Refill : Height: 5'4.00" Weight: 169lbs. 4.0oz. 76.829828tu; 29.00 BMI Method:Stated General Appearance: WD/WN, no apparent distress Eyes: Bilateral Eye Normal Inspection, Bilateral Eye PERRL, Bilateral Eye EOMI HEENT: TMs normal (right partially visulaised), pharynx normal Neck: full range of motion, supple Respiratory: lungs clear, normal breath sounds, no respiratory distress, no accessory muscle use Cardiovascular: regular rate, rhythm Gastrointestinal: normal bowel sounds, non tender, soft Extremities: normal range of motion, no pedal edema Neurologic/Psychiatric: alert, normal mood/affect, oriented x 3 Skin: normal color, warm/dry Progress/Results/Core Measures Suspected Sepsis SIRS Temperature: Pulse: Respiratory Rate: Blood Pressure / Mean: Results/Orders Lab Results Laboratory Tests Test 08/23/22 07:20 Range/Units Influenza Type A (RT-PCR) Not Detected Not Detecte Influenza Type B (RT-PCR) Not Detected Not Detecte SARS-CoV-2 RNA (RT-PCR) Detected H Not Detecte My Orders Orders - GAVINO HARDING MD Covid 19 Inhouse Test (08/23/22 07:31) Influenza A And B By Pcr (08/23/22 07:31) Isolation Central Supply Req (08/23/22 07:31) Vital Signs/I&O 08/23/22 07:06 Temp 36.7 Pulse 85 B/P (MAP) 153/73 (99) Pulse Ox 93 O2 Delivery Room Air Capillary Refill : Progress Note : Time: 08:20 Progress Note Patient seen and examined, evaluation today includes physical exam, COVID test. Physical exam pertinent for well-developed well-nourished female in no acute distress. Oxygen saturations 92 to 97% on room air without increased work of breathing or respiratory distress. Lungs are clear, respirations are even and unlabored. Heart is regular rate in the 70s and 80s. Blood pressure is good. Abdomen is soft, no lower extremity edema or pain. No neurologic complaints or deficits. Differential diagnosis viral syndrome/COVID/flu/pneumonia. Patient noted to have a positive COVID test. Based on history and physical exam consideration for chest x-ray however due to clear lungs, no distress, normal oxygen saturations I did not order a chest x-ray. She is not tachycardic or hypotensive. She is not vomiting and maintains good oral intake therefore laboratory evaluation not needed and fluid resuscitation not done. Patient I believe is outside the window for starting Paxlovid secondary to symptoms starting 6 days ago. She has no clinical or objective findings concerning for sepsis. Will recommend supportive care over the next several days with strict return precautions. Departure Impression Primary Impression: COVID-19 Disposition: 01 HOME, SELF-CARE Condition: Stable Departure-Patient Inst. Decision time for Depature: 08:22 Referrals: ELIER MURGUIA DO (PCP/Family) Primary Care Physician Patient Instructions: COVID-19 (DC) Add. Discharge Instructions: Continue to drink plenty of fluids to stay well-hydrated. When you take ibuprofen if you are taking 4 tablets / 800 mg please do so with food. Your ibuprofen dosing should be every 8 hours. You can take extra strength Tylenol 2 tablets every 6 hours as needed for fever, body aches. I would recommend also nmtp-vtz-[id number] DayQuil or NyQuil for congestion and cough. You can also take Robitussin please follow packaging instructions. Please call for a follow-up appointment with your primary care physician next week. Return to the emergency room for any new, concerning or emergent complaints. Copy Copies To 1: ELIER MURGUAI KATHRYN M MD Aug 23, 2022 07:33
[2022-08-23 08:30] VITALS: BP 128/65
== END 2022-08-23 08:30 | disposition home or self-care (01) ==
LOC: EDUNIT# 07:01 → ER 07:03
DX: U07.1 COVID-19 (principal); R50.9 Fever, unspecified; R05.9 Cough, unspecified; R09.81 Nasal congestion; R09.3 Abnormal sputum; Z28.310 Unvaccinated for COVID-19
CPT/HCPCS: 87636

== ENCOUNTER → 2022-09-25 | Outpatient (CLI) | payer MEDICARE ==
[~2022-09-25] MED LIST changes: +RT-ALBUTEROL SULF 2.5 MG/3 ML PRE-MIX VIAL INH ONE
--- NOTE | 2022-09-25 10:58 | Diagnostic Imaging Report ---
INDICATION: Wheezing. COMPARISON: 09/22/2018. TECHNIQUE: Frontal and lateral radiographs of the chest dated September 25, 2022. FINDINGS: The cardiac silhouette and pulmonary vasculature are within normal limits. The lungs are clear of focal pulmonary opacity. No pleural effusion. No pneumothorax. Scattered osseous degenerative changes without acute osseous abnormality. IMPRESSION: Similar-appearing examination without acute cardiopulmonary abnormality. Dictated by: Dictated on workstation # [id number]
== END ==
LOC: RT 08:25
PROVIDERS: ATTEND Internal Medicine
DX: J44.9 Chronic obstructive pulmonary disease, unspecified (principal); R06.2 Wheezing
CPT/HCPCS: 71046; 94060; 94726; 94729

== ENCOUNTER → 2022-10-02 | Outpatient (CLI) | payer MEDICARE ==
[~2022-10-02] MED LIST changes: -RT-ALBUTEROL SULF 2.5 MG/3 ML PRE-MIX VIAL INH ONE
--- NOTE | 2022-10-02 17:22 | Diagnostic Imaging Report ---
INDICATION: Postmenopausal screening COMPARISON: 05/24/2004 FINDINGS: AP Spine L1-L4: [BMD (g/cm2): 1.186] [T-Score: -0.1] [Z-Score: 1.1] [BMD Previous: 1.224] [BMD % Change: -3.1*] LT Hip Neck: [BMD (g/cm2): 0.736] [T-Score: -2.2] [Z-Score: -0.6] LT Hip Total: [BMD (g/cm2):0.823] [T-Score:-1.5] [Z-Score: -0.1] [BMD Previous: 0.895] [BMD % Change: -8.0*] RT Hip Neck: [BMD (g/cm2):0.770] [T-Score:-1.9] [Z-Score:-0.4] RT Hip Total: [BMD (g/cm2):0.822] [T-score:-1.5] [Z-Score:-0.1] [BMD Previous:0.912] [BMD % Change:-9.9*] *Indicates significant change from prior examination based on 95% confidence level. World Health Organization criteria for BMD interpretation classify patients as Normal (T-score at or above -1.0), Osteopenic (T-score between -1.0 and -2.5) or Osteoporotic (T-score at or below -2.5). LIMITATIONS AND MODIFICATION: None. FRACTURE RISK (FRAX SCORE): The ten year probability of (%): Major Osteoporotic Fracture: [13.7] Hip Fracture: [3.6] IMPRESSION: 1. Osteopenia (Low bone mass). 2. Bone mineral density has decreased by a statistically significant amount, as detailed above. 3. See below National Osteoporosis Foundation guidelines on when to potentially initiate pharmacologic therapy. Based on the National Osteoporosis Foundation Guidelines, pharmacologic treatment should be initiated in any of the following, unless clinical conditions suggest otherwise: * Any patient with prior fragility fracture of the hip or vertebrae. A spine fracture indicates 5X risk for subsequent spine fracture and 2X risk for subsequent hip fracture. * Osteoporosis (T-score <-2.5). * Postmenopausal women and men age 50 and older with low bone mass/osteopenia (T-score between -1.0 and -2.5) by DXA and 10-year major osteoporotic fracture greater than 20% or a 10-year probability of hip fracture greater than 3%. These fracture risks are supplied above in the FRAX score, if applicable. * Clinician judgement and/or patient preferences may indicate treatment for people with 10-year fracture probabilities above or below these levels. Dictated by: Dictated on workstation # [id number]
== END ==
LOC: RAD 09:00
PROVIDERS: ATTEND Internal Medicine
DX: M85.80 Other specified disorders of bone density and structure, unspecified site (principal); Z78.0 Asymptomatic menopausal state
CPT/HCPCS: 77080

== ENCOUNTER → 2022-10-02 | Outpatient (CLI) | payer MEDICARE ==
--- NOTE | 2022-10-04 09:13 | Diagnostic Imaging Report ---
Indication: Routine screening. Comparison is made with prior mammogram 09/26/2021 and 01/07/2018. 2-D and 3-D bilateral screening mammography was performed with CAD. CAD is utilized. The current study was also evaluated with a Computer Aided Detection (CAD) system. Both breasts are heterogeneously dense, limiting the sensitivity of mammography. No mass or malignant-appearing microcalcifications are seen. Axillae are unremarkable. IMPRESSION: BI-RADS Category 1 No mammographic features suspicious for malignancy are identified. ACR BI-RADS Category 1: Negative. Result letter will be mailed to the patient. Note: At least 10% of breast cancer is not imaged by mammography. Dictated by: Dictated on workstation # [id number]
== END ==
LOC: RAD 08:00
PROVIDERS: ATTEND Internal Medicine
DX: Z12.31 Encounter for screening mammogram for malignant neoplasm of breast (principal)
CPT/HCPCS: 77063; 77067